=== PATIENT | female | born 1985 | race Caucasian/White ===

== ENCOUNTER → 2017-03-09 | Outpatient (CLI) | payer BC ==
--- NOTE | 2017-03-10 07:50 | RAD ---
Right foot radiographs History: Lateral right foot pain for 3.5 weeks. Comparison: None. Findings: AP, lateral, and oblique views of the right foot. No acute fracture or dislocation is identified. Small plantar calcaneal and Achilles tendon insertional enthesophytes are present. Impression: No acute osseous traumatic injury identified.
== END | disposition home or self-care (01) ==
LOC: RAD 16:59
PROVIDERS: ATTEND Nurse Practitioner Family
DX: M79.671 Pain in right foot (principal)
CPT/HCPCS: 73630

== ENCOUNTER → 2017-03-31 | Outpatient (CLI) | payer BC ==
--- NOTE | 2017-03-31 15:49 | RAD ---
Examination: Ultrasound kidneys History: History of incontinence, since of urgency, recurrent bladder infection. Comparison: None available Findings: The right kidney measures 10.9 x 5.3 x 4.8 cm. The left kidney measures 11.9 x 5.7 x 5.0 cm. No evidence of hydronephrosis. The urinary bladder volume prevoid is 438 mL. Postvoid is 1 mL. Impression: Unremarkable visualized exam
== END | disposition home or self-care (01) ==
LOC: US 14:45
PROVIDERS: ATTEND Specialist
DX: N39.41 Urge incontinence (principal)
CPT/HCPCS: 76770

== ENCOUNTER → 2017-09-05 | Outpatient (CLI) | payer BC ==
--- NOTE | 2017-09-05 18:40 | RAD ---
Right lower extremity venous duplex study 09/05/2017 Clinical History: Right leg swelling. Technique: Using a combination of real time ultrasound imaging and color-flow and pulse Doppler imaging techniques along with graded compression and augmentation, duplex evaluation of the deep venous system of the right lower extremity was performed. Multiple images were obtained. Findings: There is no sonographic evidence of deep venous thrombosis involving the visualized deep venous structures of right lower extremity. Impression: Negative study. Electronically signed by: Giancarlo Rios MD (09/05/2017 6:37 PM) [facility]
== END | disposition home or self-care (01) ==
LOC: US 17:10
PROVIDERS: ATTEND Physician Assistant
DX: M79.604 Pain in right leg (principal); M79.89 Other specified soft tissue disorders
CPT/HCPCS: 93971

== ENCOUNTER → 2017-10-20 | Outpatient (CLI) | payer BC ==
--- NOTE | 2017-10-20 16:41 | RAD ---
Chest, 2 views, 10/20/2017: History: Cough, acute bronchitis The heart size and pulmonary vascularity are normal. No pulmonary infiltrates are seen. There is no evidence of pleural fluid. IMPRESSION: No acute cardiopulmonary abnormality is detected.
== END | disposition home or self-care (01) ==
LOC: RAD 16:08
PROVIDERS: ATTEND Physician Assistant
DX: J20.8 Acute bronchitis due to other specified organisms (principal)
CPT/HCPCS: 71020